=== PATIENT | male | born 1960 ===

== ENCOUNTER 2023-07-21 14:50 | Inpatient (IN) ==
[2023-07-21] MEDS: methylPREDNISolone SOD SUCC 125 mg 2 ML VIAL IV ONE (15:36)
[2023-07-21] MEDS: Oxymetazoline 0.05% NASAL SPR 15 ML BTL BOTH NARES ONE (15:36)
[2023-07-21 16:00] LABS: ABS Eosinophils 0.3 10^3/uL (0.0-0.5); ABS Lymphocytes 1.8 10^3/uL (1.0-4.8); ABS Monocytes 0.5 10^3/uL (0.0-1.1); ABS Nucleated RBC 0.01 10^3/ul; Eosinophil % 4.3 %; Hematocrit 40.4 % (38-53); Hemoglobin 13.4 g/dL (13.2-16.3); Lymphocyte % 23.5 %; Mean Corpuscular Hemoglobin 30.6 pg (27-33); Mean Corpuscular Hgb Conc 33.2 g/dL (31-36); Mean Platelet Volume 7.1 fL (7.5-11.2); Nucleated Red Blood Cells % 0.1 %/100WBC (0.0-0.8); Platelet Count 204 10^3/uL (150-450); Red Blood Count 4.39 10^6/uL (4.06-5.63); Red Cell Distribution Width 14.2 % (12-17); White Blood Count 7.7 10^3/uL (3.6-10.2)
[2023-07-21] MEDS: Albuterol/Ipratropium NEB.SOL (2.5/0.5 MG) 3 ML NEB.SOLN INH ONE (16:08)
[2023-07-21 16:41] LABS: Albumin 3.9 g/dL (3.2-5.2); Albumin/Globulin Ratio 1.4 (1-3); C Reactive Protein 6.87 mg/L (<8.01); Creatinine, Serum 0.85 mg/dL (0.67-1.17); Globulin 2.7 g/dL (2-4); Phosphorus 3.2 mg/dL (2.5-5.0); Potassium 4.8 mmol/L (3.5-5.0); Total Bilirubin 0.4 mg/dL (0.2-1.0); Total Protein 6.6 g/dL (6.4-8.9); eGFR CKD-EPI 96.4 (>60)
[2023-07-21] MEDS: Albuterol HFA INHALER 8 gm MDI INH SCH (17:06)
[2023-07-21 17:29] LABS: High Sensitivity Troponin 1 Hr 6 pg/mL (<20)
[2023-07-21 19:11] LABS: Urine Appearance Clear; Urine Bilirubin Negative (Negative); Urine Blood Negative (Negative); Urine Color Light-Yellow; Urine Glucose 1+ (>=70 mg/dL) (Negative); Urine Ketones Negative (Negative); Urine Nitrite Negative (Negative); Urine Protein Negative (Negative); Urine Specific Gravity 1.017 (1.002-1.030); Urine Urobilinogen Negative (Negative)
[2023-07-21] MEDS ORDERED: Albuterol HFA INHALER 8 gm MDI INH PRN (20:24)
[2023-07-21] MEDS ORDERED: Senna TAB 8.6 mg TAB PO PRN (20:42)
[2023-07-21] MEDS ORDERED: LORazepam 2 mg VIAL 1 ml ONE (21:14)
[2023-07-21] MEDS ORDERED: Lorazepam PYXIS KEY PRN (21:25)
[2023-07-21] MEDS: LORazepam 2 mg VIAL 1 ml IV PUSH ONE (21:31)
[2023-07-21] MEDS: Furosemide 40 mg/4 ml IV VIAL IV SLOW PU ONE (21:32)
[2023-07-21] MEDS: Albuterol/Ipratropium NEB.SOL (2.5/0.5 MG) 3 ML NEB.SOLN INH SCH (21:36)
[2023-07-21] MEDS: Enoxaparin 40 MG/0.4 ML SYR SUBCUT SCH (21:52)
[2023-07-22] MEDS: Furosemide 40 mg/4 ml IV VIAL IV ONE ×2 (02:44→16:13)
[2023-07-22 05:36] LABS: ABS Lymphocytes 0.8 10^3/uL (1.0-4.8); ABS Monocytes 0.1 10^3/uL (0.0-1.1); ABS Neutrophils 10.7 10^3/uL (1.5-7.6); ABS Nucleated RBC 0.01 10^3/ul; Hematocrit 39.9 % (38-53); Hemoglobin 13.4 g/dL (13.2-16.3); Mean Corpuscular Hemoglobin 30.9 pg (27-33); Mean Corpuscular Hgb Conc 33.5 g/dL (31-36); Mean Corpuscular Volume 92.4 fL (80-97); Mean Platelet Volume 7.2 fL (7.5-11.2); Platelet Count 182 10^3/uL (150-450); Red Blood Count 4.32 10^6/uL (4.06-5.63); White Blood Count 11.6 10^3/uL (3.6-10.2)
[2023-07-22 06:14] LABS: Calcium 8.6 mg/dL (8.6-10.3); Creatinine, Serum 0.99 mg/dL (0.67-1.17); Potassium 5.3 mmol/L (3.5-5.0); eGFR CKD-EPI 84.5 (>60)
[2023-07-22] MEDS: Albuterol HFA INHALER 8 gm MDI INH SCH (08:29)
[2023-07-22] MEDS ORDERED: Senna TAB 8.6 mg TAB PO PRN (09:45)
[2023-07-22] MEDS ORDERED: Oxymetazoline 0.05% NASAL SPR 15 ML BTL BOTH NARES PRN (09:45)
[2023-07-22] MEDS: Albuterol/Ipratropium NEB.SOL (2.5/0.5 MG) 3 ML NEB.SOLN INH ONE (10:36)
[2023-07-22] MEDS: Mometasone/Formoter 200/5 MDI INH SCH (11:22)
[2023-07-22] MEDS: Fluticasone NASAL SPRAY 50MCG 16 gm SPRAY BTL BOTH NARES SCH (12:02)
[2023-07-22] MEDS ORDERED: Sulfur Hexaflouride MICROSPHR 25 MG VIAL ONE (14:37)
[2023-07-22] MEDS: Senna TAB 8.6 mg TAB PO SCH (19:33)
[2023-07-22 20:58] VITALS: BP 141/89
== END 2023-07-22 19:40 | DRG 140 ==
LOC: ED 14:50 → EDHOLD 19:37 → MED 07-22 10:59
PROVIDERS: ADMIT Student in an Organized Health Care Education/Training Program; ATTEND Internal Medicine